=== PATIENT | female | born 1995 | race Caucasian/White ===

== ENCOUNTER → 2018-05-23 | Outpatient (CLI) | payer BC ==
[2018-05-24 15:07] LABS: HPV 16 Negative (Negative); HPV 18 Negative (Negative); HPV OTHER HR TYPES Negative (Negative)
== END | disposition home or self-care (01) ==
LOC: LAB 12:42 → LAB SHORT 12:42
PROVIDERS: Obstetrics & Gynecology Gynecology
DX: D06.9 Carcinoma in situ of cervix, unspecified (principal); R87.810 Cervical high risk human papillomavirus (HPV) DNA test positive
CPT/HCPCS: 87624; 88142

== ENCOUNTER → 2018-11-22 | Outpatient (CLI) | payer BC ==
[2018-11-26 13:07] LABS: HPV 16 Negative (Negative); HPV 18 Negative (Negative); HPV OTHER HR TYPES Negative (Negative)
== END | disposition home or self-care (01) ==
LOC: LAB 11:40 → LAB SHORT 11:40
PROVIDERS: Obstetrics & Gynecology
DX: R87.810 Cervical high risk human papillomavirus (HPV) DNA test positive (principal); R87.613 High grade squamous intraepithelial lesion on cytologic smear of cervix (HGSIL)
CPT/HCPCS: 87624; 88142

== ENCOUNTER → 2022-01-20 | Outpatient (CLI) | payer OTHER, BC ==
[2022-01-27 10:11] LABS: CHLAMYDIA TRACHOMATIS, NAA Negative (Negative); HPV 16 Negative (Negative); HPV 18 Negative (Negative); HPV OTHER HR TYPES Negative (Negative)
== END ==
LOC: LAB SHORT 15:00
PROVIDERS: Obstetrics & Gynecology
DX: Z01.419 Encounter for gynecological examination (general) (routine) without abnormal findings (principal); Z11.3 Encounter for screening for infections with a predominantly sexual mode of transmission
CPT/HCPCS: 87491; 87591; 87624; G0123

== ENCOUNTER → 2023-01-26 | Outpatient (CLI) | payer BC ==
[2023-02-07 20:51] LABS: HPV GENOTYPE 16 Not Detected; HPV GENOTYPE 18 Not Detected; HPV HIGH RISK Not Detected; HPV SOURCE Cervical
== END | disposition home or self-care (01) ==
LOC: LAB 15:43 → LAB SHORT 15:43
PROVIDERS: Obstetrics & Gynecology
DX: Z01.419 Encounter for gynecological examination (general) (routine) without abnormal findings (principal)
CPT/HCPCS: 87624; G0123

== ENCOUNTER → 2023-02-07 | Outpatient (CLI) | payer BC | LOC: LAB 12:06 → LAB SHORT 12:06 | DX: D48.5 Neoplasm of uncertain behavior of skin (principal) | CPT/HCPCS: 88305 ==

== ENCOUNTER → 2024-02-07 | Outpatient (CLI) | payer BC ==
[2024-02-19 12:15] LABS: HPV HIGH RISK BY TMA Not Detected; HPV SOURCE Cervical
== END ==
LOC: LAB SHORT 14:43 → LAB 14:43
PROVIDERS: Obstetrics & Gynecology
DX: Z01.419 Encounter for gynecological examination (general) (routine) without abnormal findings (principal)
CPT/HCPCS: 87624; G0123

== ENCOUNTER 2024-12-09 05:24 | Inpatient (IN) | payer BC ==
[~2024-12-09] VITALS: Ht 167.6 cm; Wt 82.7 kg
[2024-12-09] VITALS (21 sets, daily range): BP systolic 89–140; BP diastolic 52–91
[2024-12-09] MEDS ORDERED: CeFAZolin Sodium 2,000 MG in NS 100 ML IV SCH (05:35)
[2024-12-09] MEDS ORDERED: Methylergonovine Maleate 0.2MG / ML 1ML Amp IM PRN ×2 (05:35→08:40)
[2024-12-09] MEDS ORDERED: OXYTOCIN/RINGER'S LACTATE 500 ML IV PRN (05:35)
[2024-12-09] MEDS ORDERED: Citric Acid/Sodium Citrate 30 ML BTL PO SCH (05:35)
[2024-12-09] MEDS ORDERED: Metoclopramide HCl 5MG / ML 2ML Vial IV SCH (05:35)
[2024-12-09] MEDS ORDERED: Tranexamic Acid 100 ML IV PRN (05:35)
[2024-12-09] MEDS ORDERED: Carboprost Tromethamine 250 MCG/ML 1ML Amp IM PRN ×2 (05:35→08:50)
[2024-12-09] MEDS ORDERED: Oxytocin 10 Unit / ML Vial IM PRN (05:35)
[2024-12-09] MEDS ORDERED: PRENATAL 19 TA1 EAC3 PO (05:40)
[2024-12-09] MEDS ORDERED: Ondansetron HCl 2 MG / ML 2ML Vial IV PRN ×3 (05:45→08:35)
[2024-12-09 06:10] LABS: BASOPHILS ABSOLUTE AUTO 0.06 K/mm3 (0.00-0.23); BASOPHILS PERCENT AUTO 1 % (0-2); EOSINOPHILS ABSOLUTE AUTO 0.22 K/mm3 (0.00-0.68); EOSINOPHILS PERCENT AUTO 2 % (0-6); Hematocrit 42.5 % (33.0-51.0); Hemoglobin 15.0 g/dL (11.5-16.0); IMMATURE GRAN ABSOLUTE AUTO 0.03 K/mm3 (0.00-0.10); IMMATURE GRAN PERCENT AUTO 0 % (0-1); LYMPHOCYTES ABSOLUTE AUTO 2.88 K/mm3 (0.84-5.20); LYMPHOCYTES PERCENT AUTO 29 % (21-46); MONOCYTES ABSOLUTE AUTO 0.84 K/mm3 (0.16-1.47); MONOCYTES PERCENT AUTO 9 % (4-13); Mean Corpuscular HGB Conc 35.3 g/dL (31.5-36.5); Mean Corpuscular Volume 90 fL (80-100); NEUTROPHILS ABSOLUTE AUTO 5.81 K/mm3 (1.96-9.15); NEUTROPHILS PERCENT AUTO 59 % (41-73); NRBC ABSOLUTE 0.00 K/mm3 (0.00-0.02); NRBC Auto 0.0 /100 WBC (0.0-0.2); Platelet Count 161 K/mm3 (150-400); RDW Coefficient Variation 12.4 % (11.7-14.2); RDW Standard Deviation 40.6 fL (35.1-46.3)
[2024-12-09] MEDS ORDERED: Ketorolac Tromethamine 30mg Vial ONE (07:08)
[2024-12-09] MEDS ORDERED: Phenylephrine HCl 100 MCG/ML-NS 10MLSYR (1MG/10ML) ONE (07:08)
[2024-12-09] MEDS ORDERED: Oxytocin 10 Unit / ML Vial ONE (07:08)
[2024-12-09] MEDS ORDERED: Ondansetron HCl 2 MG / ML 2ML Vial ONE (07:39)
--- NOTE | 2024-12-09 08:10 | NUR ---
12/09/24 0810 Daisy Chávez VIABLE FEMALE BORN AT 0747, APGARS 9/9. CORD BLOOD GIVEN TO RADHA CHOU.
[2024-12-09] MEDS ORDERED: HYDROmorphone HCl/Pf 1MG SYR IV PRN (08:15)
[2024-12-09] MEDS ORDERED: FentaNYL Citrate 50 MCG/ML 2 ML Injection IV PRN ×3 (08:15)
[2024-12-09] MEDS ORDERED: Metoclopramide HCl 5MG / ML 2ML Vial IV PRN (08:15)
[2024-12-09] MEDS ORDERED: Morphine Sulfate 4 MG/1 ML Injection IV PRN (08:35)
[2024-12-09] MEDS ORDERED: OXYTOCIN/RINGER'S LACTATE 500 ML IV SCH ×2 (08:40→08:50)
[2024-12-09] MEDS ORDERED: Magnesium Hydroxide Conc 10 ML UDC PO PRN (08:40)
[2024-12-09] MEDS ORDERED: Rho(D) Immune Globulin 300 MCG / SYR IM ONE (08:45)
[2024-12-09] MEDS ORDERED: Ketorolac Tromethamine 30mg Vial IV SCH (09:00)
[2024-12-09] MEDS ORDERED: Prenatal Vit/FE Fumarate/FA 1 Tab PO SCH (09:00)
[2024-12-09] MEDS ORDERED: Ketorolac Tromethamine 30mg Vial IV PRN (14:00)
--- NOTE | 2024-12-09 17:41 | NUR ---
1615: PT UP OOB TO SHOWER AND PERDOMO D/C PER PT REQUEST. CRISTHIAN WELL. HOSPITAL SHOWER WATER WENT COLD ONCE TO THE SHOWER SO PT RINSED LOWER HALF AND SPONGE BATHED. DRESSING REMOVED. STERI STRIPS INTACT. OFFERED TO REPLACE DRESSING INCISION HAS A SMALL AMOUNT OF S/S DRAINAGE BUT PT DECLINED AT THIS TIME. 1740: PT UP OOB TO AMBULATE IN ROOM TO ATTEMPT TO RELIEVE DISCOMFORT. REQUESTED PAIN RX.
[2024-12-10 03:25] VITALS: BP 121/72
[2024-12-10 06:21] LABS: BASOPHILS ABSOLUTE AUTO 0.06 K/mm3 (0.00-0.23); BASOPHILS PERCENT AUTO 1 % (0-2); EOSINOPHILS ABSOLUTE AUTO 0.17 K/mm3 (0.00-0.68); EOSINOPHILS PERCENT AUTO 2 % (0-6); Hematocrit 42.0 % (33.0-51.0); Hemoglobin 14.2 g/dL (11.5-16.0); IMMATURE GRAN ABSOLUTE AUTO 0.04 K/mm3 (0.00-0.10); IMMATURE GRAN PERCENT AUTO 0 % (0-1); LYMPHOCYTES ABSOLUTE AUTO 2.40 K/mm3 (0.84-5.20); LYMPHOCYTES PERCENT AUTO 23 % (21-46); MONOCYTES ABSOLUTE AUTO 1.02 K/mm3 (0.16-1.47); MONOCYTES PERCENT AUTO 10 % (4-13); Mean Corpuscular HGB Conc 33.8 g/dL (31.5-36.5); NEUTROPHILS ABSOLUTE AUTO 6.66 K/mm3 (1.96-9.15); NEUTROPHILS PERCENT AUTO 64 % (41-73); NRBC ABSOLUTE 0.00 K/mm3 (0.00-0.02); NRBC Auto 0.0 /100 WBC (0.0-0.2); Platelet Count 161 K/mm3 (150-400); RDW Coefficient Variation 12.5 % (11.7-14.2); RDW Standard Deviation 43.2 fL (35.1-46.3)
[2024-12-10 06:46] LABS: Mean Corpuscular Volume 95 fL (80-100)
[2024-12-10 09:28] VITALS: BP 142/84
--- NOTE | 2024-12-10 10:27 | NUR ---
0945: UP AMBULATING IN HALLS TO NURSERY WITH NB. PT HAS BEEN UP AMBULATING FREQUENTLY IN THE ROOM AND CRISTHIAN NB AND SELF CARE WELL.
[2024-12-10 12:23] VITALS: BP 131/76
--- NOTE | 2024-12-10 12:33 | NUR ---
PT UP TO SHOWER INDEPENDANTLY. CRISTHIAN WELL. C/O MILD PAIN. RX GIVEN. PT CRISTHIAN SELF AND NB CARE WELL. GOING OVER D/C INSTRUCTIONS. NO QUESTIONS OR CONCERNS FROM PT OR S.O.
[2024-12-10 17:53] VITALS: BP 135/76
[2024-12-10 19:29] VITALS: BP 122/68
--- NOTE | 2024-12-10 21:29 | NUR ---
Pt requesting for all cares to be put on hold until she calls. Pt is going to go to sleep. CLWR. No s/s of distress or pain.
--- NOTE | 2024-12-11 05:46 | NUR ---
Pt rested thoughout the night, stated she slept some. Declined VS. Took shower and ordered breakfast. Denies other needs at this time.
[2024-12-11] MEDS ORDERED: Polyethylene Glycol 3350 17 gm PO PRN (06:30)
[2024-12-11 07:26] VITALS: BP 131/78
[2024-12-11 10:07] VITALS: BP 127/78
== END 2024-12-11 09:00 | disposition home or self-care (01) | DRG 788 ==
LOC: BC 05:33
PROVIDERS: ADMIT Obstetrics & Gynecology
PROC: 10D00Z1 Extraction of Products of Conception, Low, Open Approach (ICD-10-PCS; principal; 2024-12-09 07:30)
DX: O32.1XX0 Maternal care for breech presentation, not applicable or unspecified (principal); Z3A.39 39 weeks gestation of pregnancy; Z37.0 Single live birth
CPT/HCPCS: 36415; 85025; 86850; 86900; 86901; 86923; A9270; J0461; J1885; J2371; J2405; J2590; J7120